=== PATIENT | female | born 1960 | race Two or more races ===

== ENCOUNTER → 2017-12-29 | Outpatient (CLI) | payer OTHER | LOC: BRMIMAGING 11:31 | PROVIDERS: ATTEND Internal Medicine | DX: S52.042A Displaced fracture of coronoid process of left ulna, initial encounter for closed fracture (principal) | CPT/HCPCS: 73080-PO ==

== ENCOUNTER → 2018-06-05 | Outpatient (CLI) | payer OTHER | LOC: FIMAGING 06:48 | PROVIDERS: ATTEND Specialist | DX: S50.12XA Contusion of left forearm, initial encounter (principal); S53.431A Radial collateral ligament sprain of right elbow, initial encounter ==